=== PATIENT | female | born 1935 | race Caucasian/White ===

== ENCOUNTER 2023-03-12 12:25 | Outpatient (CLI) | payer MEDICARE, BC, SELFPAY ==
[2023-03-12 12:32] VITALS: BMI 31.6
[2023-03-12 12:56] LABS: Basophils % 0.2 % (0.1-2.0); Eosinophils # 0.1 K/mm3 (0.0-0.4); Eosinophils % 2.3 % (0.1-12.0); Hemoglobin 11.7 g/dL (12.2-16.2); Lymphocytes # 1.3 K/mm3 (0.7-4.5); Lymphocytes % 23.4 % (10-50); Mean Corpuscular HGB Conc 32.5 g/dL (31.8-35.4); Mean Corpuscular Hemoglobin 32.9 pg (27.0-31.2); Mean Corpuscular Volume 101.2 fl (81-99); Mean Platelet Volume 8.4 fl (7.4-10.4); Monocytes # 0.4 K/mm3 (0.1-1.0); Monocytes % 6.4 % (1.7-9.3); Neutrophils # 3.7 K/mm3 (1.8-7.8); Neutrophils % 67.6 % (37.0-80.0); Platelet Count 222 K/mm3 (142-424); Red Blood Count 3.56 M/mm3 (4.20-5.40); Red Cell Distribution Width 14.5 % (11.5-17.5); White Blood Count 5.4 K/mm3 (4.8-10.8)
[2023-03-12 12:59] LABS: Chloride 100 mmol/L (98-107)
[2023-03-12 13:00] LABS: Potassium 4.4 mmoL/L (3.5-5.1); Sodium 137 mmol/L (136-145)
[2023-03-12 13:03] LABS: Alanine Aminotransferase 21 U/L (12-78); Albumin Level 4.3 g/dl (3.5-5.0); Albumin/Globulin Ratio 1.3 (1.1-1.8); Alkaline Phosphatase 185 U/L (38-126); Anion Gap 11.4 mEq/L (5-15); Aspartate Amino Transferase 32 U/L (14-36); Blood Urea Nitrogen 24 mg/dl (7-17); Calcium 8.6 mg/dl (8.4-10.2); Carbon Dioxide 30 mmol/L (22.0-30.0); Creatinine Clearance Estimated 40 mL/min (50-200); Estimated Glomerular Filt Rate 42 ml/min (>60); GFR (African American) 51 ML/MIN (>60); Globulin 3.4 g/dL (1.3-3.2); Glucose 94 mg/dl (74-100); Total Protein,Serum 7.7 g/dl (6.3-8.2)
[2023-03-12 13:04] LABS: Bilirubin,Total 0.1 mg/dl (0.2-1.3)
[2023-03-12 13:12] LABS: Lactate Dehydrogenase 198 U/L (313-618)
--- NOTE | 2023-03-12 14:30 | PC.NURSE ---
[id number] Patient here for labs. CBC, CMP, LDH collected per venipuncture to right AC x1 stick with butterfly needle. Patient tolerated well.
== END 2023-03-12 12:50 | disposition home or self-care (01) ==
LOC: INF 12:28
PROVIDERS: PCP Internal Medicine; Visit Provider Internal Medicine Medical Oncology
DX: C85.90 Non-Hodgkin lymphoma, unspecified, unspecified site (principal)
CPT/HCPCS: 36415; 80053; 83615; 85025

== ENCOUNTER 2023-04-30 12:21 | Outpatient (CLI) | payer MEDICARE, BC, SELFPAY ==
[2023-04-30 12:29] VITALS: BMI 31.6
[2023-04-30 12:44] LABS: Basophils % 0.2 % (0.1-2.0); Eosinophils # 0.1 K/mm3 (0.0-0.4); Eosinophils % 1.8 % (0.1-12.0); Hematocrit 34.2 % (37.0-47.0); Hemoglobin 11.3 g/dL (12.2-16.2); Lymphocytes # 1.2 K/mm3 (0.7-4.5); Lymphocytes % 21.5 % (10-50); Mean Corpuscular Hemoglobin 32.8 pg (27.0-31.2); Mean Corpuscular Volume 99.3 fl (81-99); Mean Platelet Volume 8.7 fl (7.4-10.4); Monocytes # 0.4 K/mm3 (0.1-1.0); Monocytes % 7.2 % (1.7-9.3); Neutrophils % 69.1 % (37.0-80.0); Platelet Count 173 K/mm3 (142-424); Red Blood Count 3.45 M/mm3 (4.20-5.40); Red Cell Distribution Width 15.2 % (11.5-17.5); White Blood Count 5.7 K/mm3 (4.8-10.8)
[2023-04-30 12:51] LABS: Chloride 100 mmol/L (98-107); Sodium 137 mmol/L (136-145)
[2023-04-30 12:52] LABS: Potassium 4.6 mmoL/L (3.5-5.1)
[2023-04-30 12:54] LABS: Alanine Aminotransferase 21 U/L (12-78); Alkaline Phosphatase 203 U/L (38-126); Anion Gap 11.6 mEq/L (5-15); Aspartate Amino Transferase 33 U/L (14-36); Bilirubin,Total 0.4 mg/dl (0.2-1.3); Blood Urea Nitrogen 23 mg/dl (7-17); Carbon Dioxide 30 mmol/L (22.0-30.0); Creatinine Clearance Estimated 47 mL/min (50-200); Estimated Glomerular Filt Rate 52 ml/min (>60); GFR (African American) 63 ML/MIN (>60)
[2023-04-30 12:55] LABS: Albumin/Globulin Ratio 1.3 (1.1-1.8); Calcium 8.5 mg/dl (8.4-10.2); Glucose 103 mg/dl (74-100)
[2023-04-30 14:04] LABS: Lactate Dehydrogenase 180 U/L (313-618)
== END 2023-04-30 12:40 | disposition home or self-care (01) ==
LOC: INF 12:25
PROVIDERS: Visit Provider Internal Medicine Medical Oncology
DX: C82.90 Follicular lymphoma, unspecified, unspecified site (principal)
CPT/HCPCS: 36415; 80053; 83615; 85025